=== PATIENT | female | born 1980 | race Caucasian/White ===

== ENCOUNTER 2019-12-16 06:15 | Day surgery (SDC) | payer OTHER ==
[~2019-12-16 06:15] MED LIST: SYNTHROID112 MCG PO
== END 2019-12-16 16:20 | disposition home or self-care (01) ==
LOC: CIR.AMB 06:15 → ADM 11:00 → CIR.AMB 16:20
DX: N73.6 Female pelvic peritoneal adhesions (postinfective) (principal)